=== PATIENT | female | born 2000 | race Hispanic/Latino ===

== ENCOUNTER 2021-04-02 22:53 | Emergency (ER) | payer OTHER, SELFPAY ==
[2021-04-02 23:01] VITALS: BP 138/68; PULSE 87; RESP 18; TEMP 36.9; O2SAT 100
--- NOTE | 2021-04-03 00:03 | ED.ABDPAIN ---
HPI - Abdominal Pain General Chief Complaint: Abdominal Pain Stated Complaint: ABD pain, 7wks preg Time Seen by Provider: 04/02/21 23:11 Source: patient Mode of arrival: ambulatory Limitations: no limitations History of Present Illness HPI narrative: Patient is a who presents today with complaints of abdominal pain with some nausea that started about 1 hour prior to arrival. Pain only occurs on movement. Patient LMP Feb 07, 2021. Denies urinary symptoms, did have an episode of diarrhea this am. Patient denies abnormal or bloody discharge. Patient does endorse constipation. Prior to this am she is unsure when her last BM was. Related Data Allergies Allergy/AdvReac Type Severity Reaction Status Date / Time No Known Allergies Allergy Verified 04/02/21 23:04 Review of Systems Review of Systems: CONSTITUTIONAL: Denies fever, chills, or sweats. EYES: Denies visual changes, redness, or discharge. ENT: Denies rhinorrhea, congestion, sore throat, or otalgia. CARDIOVASCULAR: Denies chest pain, palpitations, or edema. RESPIRATORY: Denies cough or dyspnea. GASTROINTESTINAL: Positive for abdominal pain and nausea. Denies vomiting, or diarrhea. GENITOURINARY: Denies dysuria or hematuria. SKIN: Denies rash or itching. MUSCULOSKELETAL: Denies back pain, joint pain, or myalgia. NEUROLOGIC: Denies headache, numbness, dizziness, or weakness. PSYCHIATRIC: Denies anxiety or depression. PMFSH Past Medical History Medical History Healthy female Social History Social History Smoking status: Never smoker Exam Narrative: GENERAL: Well-appearing, well-nourished, and in no acute distress. HEAD: Normocephalic, atraumatic. EYES: PERRLA and EOMI. ENT: Nares clear, no rhinorrhea or epistaxis. Mucous membranes moist. Oropharynx without tonsillar hypertrophy exudate or other lesions. Bilateral TMs pearly barry nonbulging NECK: Supple. No adenopathy or masses. No carotid bruits or JVD CHEST: Clear to auscultation. No respiratory distress. No wheezes rales or rhonchi HEART: Regular rate and rhythm. No murmur heard. Normal peripheral pulses. ABDOMEN: Soft, nondistended, normal active bowel sounds. Tender at umbilicus. Discharge described below. EXTREMITIES: Normal range of motion. No edema. SKIN: Warm, dry, no rash. NEURO: No focal deficits. Alert and oriented x3. PSYCH: Normal mood and affect. Course Reevaluation(s) Reevaluation #1: Patient currently without pain. Patient still states pain only with movement but is improved. Patient still denies vaginal bleeding. Patient has appointment with OB Monday. Date: 04/03/21 Time: 01:16 Vital Signs Vital signs: Vital Signs Temperature 36.9 C 04/02/21 23:01 Pulse Rate 87 04/02/21 23:01 Respiratory Rate 18 04/02/21 23:01 Blood Pressure 138/68 04/02/21 23:01 Pulse Oximetry 100 04/02/21 23:01 Temperature 36.9 C 04/02/21 23:01 Pulse Rate 87 04/02/21 23:01 Respiratory Rate 18 04/02/21 23:01 Blood Pressure 138/68 04/02/21 23:01 Pulse Oximetry 100 04/02/21 23:01 MDM - Abdominal Pain MDM Narrative Medical decision making narrative: Patient only with pain on movement which has decreased in intensity since arrival. She is unsure of when her last BM was prior to this am. This am she had a small amount of diarrhea. Patient does admit to being constipated. WBC WNL Beta HCG 95,676. Urine without signs of infection. Differential Diagnosis Differential diagnosis: Likely abdominal pain, constipation and other (ectopic ) Lab Data Result diagrams: 04/02/21 23:46 04/02/21 23:46 Labs: Lab Results 04/02/21 04/02/21 04/02/21 Range/Units 23:46 23:46 23:46 WBC 8.1 (4.5-10.0) K/mm3 RBC 4.49 (4.2-5.4) M/mm3 Hgb 11.5 L (12.0-15.0) g/dL Hct 35.4 L (37.0-47.0) % MCV 78.8 L (80-100) fl MC
[2021-04-03 00:08] LABS: Basophils Percent Auto 0.2 % (0.2-1.2); Eosinophils Absolute Auto 0.1 K/mm3 (0-0.3); Eosinophils Percent Auto 0.9 % (0-4.4); Hematocrit 35.4 % (37.0-47.0); Hemoglobin 11.5 g/dL (12.0-15.0); Immature Granulocyte Absolute 0.03 K/mm3 (0.00-0.031); Immature Granulocyte Percent A 0.4 % (0-0.5); Lymphocytes Absolute Auto 2.01 K/mm3 (0.9-3.2); Mean Corpuscular HGB Conc 32.5 g/dl (32-36); Mean Corpuscular Hemoglobin 25.6 pg (26-34); Mean Corpuscular Volume 78.8 fl (80-100); Mean Platelet Volume 9.6 fl (7.4-10.4); Monocytes Absolute Auto 0.7 K/mm3 (0.1-0.6); Monocytes Percent Auto 8.6 % (2.6-8.5); Neutrophils Absolute Auto 5.2 K/mm3 (1.3-6.7); Neutrophils Percent Auto 64.9 % (45.5-73.1); Platelet Count Result 281 k/mm3 (150-375); Red Blood Count 4.49 M/mm3 (4.2-5.4); Red Cell Distribution Width 14.9 % (11.5-14.5); White Blood Count 8.1 K/mm3 (4.5-10.0)
[2021-04-03 00:11] LABS: Add Urine Microscopic? NO; Appearance Urine Clear (Clear); Bilirubin Urine Negative (Negative); Blood Urine Negative (Negative); Color Urine Straw (Yellow); Glucose Urine UA Negative (Negative); Ketones Urine Negative (Negative); Leukocyte Esterase Ur Negative LEU/UL (Negative); Nitrate Urine Negative (Negative); Protein Urine Negative (Negative); Specific Grav Ur 1.006 (1.001-1.035); Urobilinogen Urine Negative mg/dL (<2.0)
[2021-04-03 00:16] LABS: Alanine Aminotransferase 14 U/L (4-35); Albumin Level 4.1 g/dL (3.5-5.1); Alkaline Phosphatase 74 U/L (38-126); Anion Gap 8 mmol/L (8-16); Aspartate Amino Transferase 22 U/L (14-36); Bilirubin,Total < 0.1 mg/dL (0.2-1.3); Blood Urea Nitrogen 9 mg/dL (7-17); Calcium 8.7 mg/dL (8.4-10.2); Carbon Dioxide 25 mmol/L (22-30); Chloride 103 mmol/L (98-107); Estimated Glomerular Filt Rate > 60; Glucose 80 mg/dL (65-110); Potassium 3.4 mmol/L (3.4-5.0); Sodium 136 mmol/L (137-145)
[2021-04-03 01:29] VITALS: BP 132/75; PULSE 82; RESP 16; O2SAT 99
== END 2021-04-03 01:31 | disposition home or self-care (01) ==
PROVIDERS: Emergency Provider Nurse Practitioner Family
DX: O26.891 Other specified pregnancy related conditions, first trimester (principal); R10.33 Periumbilical pain; O99.611 Diseases of the digestive system complicating pregnancy, first trimester; K59.00 Constipation, unspecified; Z3A.01 Less than 8 weeks gestation of pregnancy
CPT/HCPCS: 36415; 80053; 81003; 81025; 84702; 85025; 99283

== ENCOUNTER 2021-08-23 15:14 | Outpatient (CLI) | payer OTHER, SELFPAY ==
[2021-08-23 16:27] LABS: Hematocrit 34.5 % (37.0-47.0); Hemoglobin 10.9 g/dL (12.0-15.0)
[2021-08-23 16:38] LABS: Glucose 1 Hour PP 50gm Dose 109 mg/dL
[2021-08-23 23:00] LABS: HIV 1/2 Ab P24 Ag Result Negative (Negative)
== END 2021-08-23 15:15 | disposition home or self-care (01) ==
PROVIDERS: Visit Provider Obstetrics & Gynecology
DX: Z36.89 Encounter for other specified antenatal screening (principal); Z3A.00 Weeks of gestation of pregnancy not specified
CPT/HCPCS: 36415; 82947; 85014; 85018; 86703; G0432

== ENCOUNTER 2021-11-14 00:34 | Inpatient (IN) | payer OTHER, SELFPAY ==
[2021-11-14] VITALS (294 sets, daily range): BP systolic 82–163; BP diastolic 40–124; PULSE 67–241; RESP 16–22; TEMP 36.3–37.5; O2SAT 89–100; BMI 26.0
--- NOTE | 2021-11-14 01:17 | LDADM ---
This patient, Judy Sahni, was admitted to Labor/Delivery/Recovery 105 on 11/14/21 at 00:34. Plans for labor, pain management and were discussed with patient. Patient/family oriented to hospital policies and general routines including ID bracelet, bed and alarms, visiting hours, pain management, procedures, bathroom and other care routines, personal items, smoking policy, room service/diet and guest tray routines, security routines, and visiting hours. Patient/Family are encouraged to report perceived risks to care and to ask questions if they do not understand what they are told or what they should do. See OBIX for further documentation.
[2021-11-14 01:25] LABS: Basophils Percent Auto 0.4 % (0.2-1.2); Eosinophils Absolute Auto 0.1 K/mm3 (0-0.3); Eosinophils Percent Auto 0.6 % (0-4.4); Hematocrit 33.8 % (37.0-47.0); Immature Granulocyte Absolute 0.07 K/mm3 (0.00-0.031); Immature Granulocyte Percent A 0.7 % (0-0.5); Lymphocytes Absolute Auto 1.94 K/mm3 (0.9-3.2); Lymphocytes Percent Auto 19.1 % (18.3-44.2); Mean Corpuscular HGB Conc 32.5 g/dl (32-36); Mean Corpuscular Hemoglobin 25.2 pg (26-34); Mean Corpuscular Volume 77.5 fl (80-100); Mean Platelet Volume 9.8 fl (7.4-10.4); Monocytes Absolute Auto 0.9 K/mm3 (0.1-0.6); Monocytes Percent Auto 8.8 % (2.6-8.5); Neutrophils Absolute Auto 7.1 K/mm3 (1.3-6.7); Neutrophils Percent Auto 70.4 % (45.5-73.1); Platelet Count Result 254 k/mm3 (150-375); Red Blood Count 4.36 M/mm3 (4.2-5.4); White Blood Count 10.1 K/mm3 (4.5-10.0)
[2021-11-14] MEDS: fentaNYL CITRATE INJ (*CRX) 100 MCG/2 ML VIAL 50 MCG IV PUSH (03:45)
[2021-11-14] MEDS: LACTATED RINGERS 1,000 ML 125 ML IV CONT ×3 (04:21→16:22)
--- NOTE | 2021-11-14 04:52 | WPDANESEPP ---
Anes - Eval Pre Procedure Procedure: labor epidural Date/Time: 11/14/21 04:52 Surgeon: Nya Preop Diagnosis: ABd pain with contractions Pre Op Diagnosis: leaking fluid Patient Data Age: 21 Gender: F Height: 1.5 m Weight: 58.5 kg Last Vital Signs Temp 97.4 F L 11/14/21 03:30 Pulse 207 H 11/14/21 04:46 BP 98/68 L 11/14/21 04:46 Pulse Ox 100 11/14/21 04:51 O2 Del Method Room Air 11/14/21 01:16 Allergies Allergy/AdvReac Type Severity Reaction Status Date / Time No Known Allergies Allergy Verified 10/18/21 12:32 Home Medications Medication Instructions Recorded Confirmed Type vitamins no.119-iron 1 tablet PO DAILY 11/14/21 11/14/21 History fumarate 29 mg-folic acid 1 mg tablet (Se--19) Laboratory Tests 11/14/21 11/14/21 11/14/21 01:13 01:13 01:13 WBC 10.1 K/mm3 H K/mm3 (4.5-10.0) RBC 4.36 M/mm3 M/mm3 (4.2-5.4) Hgb 11.0 g/dL L g/dL (12.0-15.0) Hct 33.8 % L % (37.0-47.0) MCV 77.5 fl L fl (80-100) MCH 25.2 pg L pg (26-34) MCHC 32.5 g/dl g/dl (32-36) RDW 15.0 % H % (11.5-14.5) Plt Count 254 k/mm3 k/mm3 (150-375) MPV 9.8 fl fl (7.4-10.4) Immature Gran % (Auto) 0.7 % H % (0-0.5) Neut % (Auto) 70.4 % % (45.5-73.1) Lymph % (Auto) 19.1 % % (18.3-44.2) [place] % (Auto) 8.8 % H % (2.6-8.5) Eos % (Auto) 0.6 % % (0-4.4) Baso % (Auto) 0.4 % % (0.2-1.2) Lymph # (Auto) 1.94 K/mm3 K/mm3 (0.9-3.2) [place] # (Auto) 0.9 K/mm3 H K/mm3 (0.1-0.6) Eos # (Auto) 0.1 K/mm3 K/mm3 (0-0.3) Baso # (Auto) 0.0 K/mm3 K/mm3 (0.0-0.1) Abs Immat Gran (auto) 0.07 K/mm3 H K/mm3 (0.00-0.031) Absolute Neuts (auto) 7.1 K/mm3 H K/mm3 (1.3-6.7) Absolute Nucleated RBC 0.0 K/mm3 K/mm3 (0.0-0.012) Nucleated RBC % 0.0 % % (0.0-0.2) RPR Pending Blood Type B Positive Antibody Screen Negative Patient hx anesthesia problems: none Family hx anesthesia problems: none Results Review: All pre-operative results and documents have been reviewed as part of the pre-operative evaluation. [facility] Past Medical History Medical History Chlamydia Healthy female and not yet delivered Family History Family History Other Unknown family medical history Social History Social History Smoking status: Never smoker Second hand tobacco smoke exposure: No Substance use: never Spiritual care concerns: No Exam Day of Procedure 11/14/21 04:52 Patient weight: normal
--- NOTE | 2021-11-14 11:01 | WPDHPUPDATE1 ---
History and Physical Update Update Date/Time: 11/14/21 11:01 this patient is a 21-year-old 1 at term who presented with ruptured membranes. She has proceeded through labor. She has been augmented. She is 8 cm. She has an epidural. There was reassuring status. Continue expectant management. History and Physical has been reviewed, including an updated exam of the patient. There are NO changes in the patient's condition. Risks, benefits, and alternatives have been discussed and questions answered. Patient agrees to proceed with procedure.
[2021-11-14] MEDS: OXYTOCIN 30 UNITS/NS 500 ML 30 UNITS/500 ML BAG 999 UNITS IV CONT (14:02)
[2021-11-14] MEDS: ONDANSETRON INJ 4 MG/2 ML VIAL IV PUSH (15:39)
[2021-11-14] MEDS: AMPICILLIN 2 GM/NS 100 ML 2 GM/100 ML BAG IVPB (18:24)
--- NOTE | 2021-11-14 22:28 | WPDHPUPDATE1 ---
History and Physical Update Update Date/Time: 11/14/21 22:28 History and Physical has been reviewed, including an updated exam of the patient. There are NO changes in the patient's condition. Risks, benefits, and alternatives have been discussed and questions answered. Patient agrees to proceed with procedure.
--- NOTE | 2021-11-14 22:28 | PM.IMHP ---
H&P: [facility] History of Present Illness Date/Time: 11/14/21 22:28 Chief Complaint: Labor Narrative: this patient is a 21-year-old female who is a 1. She has been laboring throughout the day. She has been complete and pushing for some time. There has been failure to descend. There is nonreassuring heart tones. We have agreed to move forward with delivery. She has late decelerations with each push. There were deep and lengthy. Patient understands risks associated with delivery they include injuries. Injuries could result in hospitalization, more surgery, severe illness. She understands that. She understands there is risk of infection and hemorrhage. Review of Systems Review of Systems: All systems reviewed & are unremarkable except as noted in HPI and below Constitutional: Constitutional: Denies chills, Denies fatigue, Denies fever(s) and Denies weakness Eyes: Eyes: Denies blurry vision, Denies change in vision, Denies loss of peripheral vision, Denies loss of vision, Denies other visual disturbances and Denies eye pain ENT: Denies vertigo, Denies dizziness, Denies hearing loss, Denies mouth pain, Denies nasal obstruction, Denies neck mass and Denies neck pain Cardiovascular: Cardiovascular: Denies chest pain, Denies diaphoresis, Denies syncope, Denies leg edema and Denies dyspnea Respiratory: Respiratory: Denies chest congestion, Denies cough, Denies hemoptysis, Denies dyspnea and Denies wheezing Gastrointestinal: Gastrointestinal: Denies abdominal pain, Denies constipation, Denies diarrhea, Denies nausea and Denies vomiting Genitourinary: Genitourinary: Denies hematuria, Denies change in libido, Denies nocturia, Denies genital lesions, Denies flank pain and Denies urinary urgency Musculoskeletal: Musculoskeletal: Denies abnormal gait, Denies back pain, Denies myalgias, Denies arthralgias, Denies joint swelling, Denies muscle weakness and Denies neck pain Integumentary/Breasts: Skin/Breast: Denies swelling, Denies breast pain, Denies breast mass, Denies dry skin, Denies nipple discharge, Denies unusual bruising and Denies jaundice Neurologic: Denies Neuro-related abnormal movements, Denies Abnormal speech present, Denies abnormal gait, Denies behavioral changes, Denies confusion, Denies vertigo, Denies dizziness, Denies syncope, Denies loss of vision, Denies memory loss, Denies convulsions and Denies weakness Psychiatric: Psychiatric: Denies abnormal sleep pattern, Denies behavioral changes, Denies change in libido, Denies confusion, Denies depression, Denies anhedonia and Denies memory loss Endocrine: Endocrine: Reports no additional endocrine complaints, Denies change in libido and Denies fatigue Hematologic/Lymphatic: Hematologic/Lymphatic: Reports no additional hematologic/lymphatic complaints Allergic/Immunologic: Allergic/Immunologic: Reports no additional allergic/immunologic complaints and Denies wheezing PMFSH Past Medical History Medical History Chlamydia Healthy female and not yet delivered Family History Family History Other Unknown family medical history Social History Social History Smoking status: Never smoker Second hand tobacco smoke exposure: No Substance use: never Spiritual care concerns: No Meds Home Medications and Allergies Home Medications Medication Instructions Recorded Confirmed Type vitamins no.119-iron 1 tablet PO DAILY 11/14/21 11/14/21 History fumarate 29 mg-folic acid 1 mg tablet (Se-Les-19) Allergies Allergy/AdvReac Type Severity Reaction Status Date / Time No Known Allergies Allergy Verified 10/18/21 12:32 Vital Signs Vital Signs - 24 hr 11/14/21 01:29 11/14/21 01:31 11/14/21 01:46 Temperature Pulse Rate 80 82 82 Blood Pres
[2021-11-14] MEDS: KETOROLAC 30 MG/ML VIAL (*BKC) 15 MG IV PUSH (22:55)
--- NOTE | 2021-11-14 23:11 | P.OP_ITS ---
Procedure Note - Detailed Date of Procedure 11/14/21 Pre-op Diagnosis Nonreassuring heart tones, failure to descen Post-op Diagnosis Same Procedure Performed Low-transverse section Surgeon Lulú Mercado MD Anesthesia Spinal Indications Failure to descend, nonreassuring heart tones Findings Normal gestational maternal anatomy, average size , normal Apgars. Description of Procedure The patient was taken the operating room. She was prepped and draped in dorsal supine position with a leftward tilt. This was done after spinal anesthetic was applied. A low-transverse skin incision was made and carried down till of the fascia with the knife. The fascial incision was made with the knife. The fascial incision was extended laterally with Neville scissors. The fascia was tented upward superiorly and inferiorly the rectus muscles were dissected off bluntly. The rectus muscles were the midline. The preperitoneal fat and peritoneum were dissected open bluntly at the superior aspect of the rectus muscles. The peritoneal incision was extended superior and inferior with good position of bladder. The uterine incision was made with a scalpel down to the level of the amniotic cavity. The amniotic cavity was entered bluntly. The infant was delivered. The cord was clamped and cut and the infant was handed off to waiting pediatric staff. Cord bloods were obt ained. The placenta was removed manually. The uterus was exteriorized. The uterus was cleared of all clots, debris and membranes. The uterus was closed in 0 Vicryl running lock fashion. An imbricating over a was placed along the incision line as well. The uterus was returned to the abdomen. The gutters were cleared of all clots and debris. The fascia was closed with 0 Vicryl running fashion. The subcutaneous tissue was irrigated pinpoint bleeders were cauterized. The skin was closed with subcuticular absorbable fannie. The skin incision line was covered with glue. The patient tolerated the procedure well. She has taken recovery room in stable condition. Sponge lap and needle counts were correct x2. Complications No immediate complications Condition Stable Disposition PACU
[2021-11-15] VITALS (41 sets, daily range): BP systolic 103–139; BP diastolic 45–101; PULSE 73–133; RESP 16–22; TEMP 36.3–36.9; O2SAT 92–100
[2021-11-15] MEDS: OXYTOCIN 30 UNITS/NS 500 ML 30 UNITS/500 ML BAG 999 UNITS IV CONT (00:27)
[2021-11-15] MEDS: LACTATED RINGERS 1,000 ML 125 ML IV CONT (00:27)
[2021-11-15] MEDS: fentaNYL CITRATE INJ (*CRX) 100 MCG/2 ML VIAL 25 MCG IV PUSH ×2 (00:53→01:20)
--- NOTE | 2021-11-15 03:05 | OBPPTRN ---
11/15/2021 at 0150 Patient transferred to post room #290 via stretcher and keiko rollins. Support person present X 2. Visitors and patient state they are fluent in Frisian, however the three spoke in Latvian the entire time I was in the room. I asked for the television's sound to please be lowered so I could effectively discuss the admission packet, security measures and plan of care. Patient and family oriented to unit, room, information board, rooming in, admission packet and security measures. I discussed that there can be one person spend the night. Judy explained there is no way for the additional visitor to go home at this time. I told the family the additional person may stay, however from this point on, only one may spend the night. The patient states understanding.
--- NOTE | 2021-11-15 07:21 | PM.OBPNVD ---
OB - PN: Subj Subjective Date/time seen: 11/15/21 07:21 Patient comments: no complaints and incisional pain [place] feeding status: breast and bottle feeding Narrative: POD 1 from primary CS. Doing well. Normal lochia. Eating, stewart in. OB - PN: Obj Data Labs CBC & Chem 7: 11/14/21 01:13 Labs: am H/H still pending OB - PN A/P Plan day: 1 Plan: routine care Comments: am H/H pending doing well so far. encouraged to put baby to breast every feed before giving bottle. Time Spent With Patient Time: Total time spent is greater than 50% in coordination of care (as documented) at patient's floor/unit and/or counseling patient: Exam Narrative: NAD abdomen soft, appropriately tender, incision bandaged Extremities nontender with 1+ edema
[2021-11-15 07:24] LABS: Basophils Percent Auto 0.2 % (0.2-1.2); Eosinophils Percent Auto 0.1 % (0-4.4); Hematocrit 28.3 % (37.0-47.0); Hemoglobin 9.1 g/dL (12.0-15.0); Immature Granulocyte Absolute 0.16 K/mm3 (0.00-0.031); Immature Granulocyte Percent A 0.9 % (0-0.5); Lymphocytes Absolute Auto 1.27 K/mm3 (0.9-3.2); Lymphocytes Percent Auto 7.2 % (18.3-44.2); Mean Corpuscular HGB Conc 32.2 g/dl (32-36); Mean Corpuscular Hemoglobin 25.1 pg (26-34); Mean Platelet Volume 9.5 fl (7.4-10.4); Monocytes Absolute Auto 1.2 K/mm3 (0.1-0.6); Monocytes Percent Auto 6.8 % (2.6-8.5); Neutrophils Absolute Auto 15.1 K/mm3 (1.3-6.7); Neutrophils Percent Auto 84.8 % (45.5-73.1); Platelet Count Result 210 k/mm3 (150-375); Red Blood Count 3.63 M/mm3 (4.2-5.4); White Blood Count 17.8 K/mm3 (4.5-10.0)
[2021-11-15 09:12] LABS: Rapid Plasma Reagin Non-Reactive (NonReactive)
--- NOTE | 2021-11-15 09:54 | WPDANLDPN2 ---
Anes-Prog Note L&D Date/Time: 11/15/21 09:54 Comfortable throughout: section Neuraxial method: epidural Epidural/Spinal procedure site: clean & non-tender Neuro status: Neuro function grossly intact. Cardiovascular status: normal Respiratory status: normal Airway patency: baseline Mental status: baseline Post-Op hydration status: normal Vital Signs: Last Vital Signs Temp 36.3 C L 11/15/21 07:24 Pulse 83 11/15/21 07:24 Resp 16 11/15/21 07:24 BP 107/61 11/15/21 07:24 Pulse Ox 97 11/15/21 07:24 O2 Del Method Room Air 11/15/21 07:15 Pain score (VAS): 02/15 I/O: Intake & Output 11/14/21 11/15/21 11/15/21 23:59 07:59 15:59 Intake Total 1200 Output Total 436 Balance 764 Post-procedural complaints: none Patient feedback: Patient satisfied with anesthetic care.
--- NOTE | 2021-11-15 09:55 | WPDANLDNPN2 ---
Anes-Prog Note L&D-Neuraxial Date/Time: 11/15/21 09:55 Neuraxial medications: epidural PF morphine Opiod-related complaints: none Patient feedback: Patient satisfied with post-operative pain management.
[2021-11-15] MEDS: KETOROLAC 30 MG/ML VIAL (*BKC) IV PUSH (10:52)
[2021-11-15] MEDS: POLYSACCHARIDE IRON COMPLEX 150 MG CAPSULE PO (16:25)
[2021-11-15] MEDS: IBUPROFEN 600 MG TABLET PO ×2 (16:26→22:58)
[2021-11-15] MEDS: DOCUSATE SODIUM 100 MG CAPSULE PO (16:27)
[2021-11-15] MEDS: HYDROcodone/acetaminophen (*CRX) 10-325 MG TABLET 1 TAB PO (22:59)
[2021-11-16] MEDS: IBUPROFEN 600 MG TABLET PO ×3 (05:35→19:05)
[2021-11-16 07:40] VITALS: BP 105/64; PULSE 73; RESP 18; TEMP 36.2; O2SAT 100
--- NOTE | 2021-11-16 07:42 | P.PNOB_ITS ---
OB - PN: Subj Subjective Date/time seen: 11/16/21 07:42 Patient comments: pain well controlled and tolerating diet [place] baby status: doing well and nursing well [place] feeding status: exclusively breast feeding OB - PN: Obj Data Labs CBC & Chem 7: 11/15/21 07:14 Labs: Laboratory Results - last 24 hr 11/14/21 01:13 RPR Non-reactive OB - PN A/P Plan day: 2 Plan: routine care Comments: home tomorrow Time Spent With Patient Time: Total time spent is greater than 50% in coordination of care (as documented) at patient's floor/unit and/or counseling patient: Exam Narrative: NAD abdomen soft, appropriately tender, incision CDI Extremities nontender with 1+ edema
[2021-11-16] MEDS: POLYSACCHARIDE IRON COMPLEX 150 MG CAPSULE PO ×2 (08:11→15:45)
[2021-11-16] MEDS: DOCUSATE SODIUM 100 MG CAPSULE PO ×2 (08:11→15:44)
[2021-11-16] MEDS: MULTIVIT/MIN/PREN/FOL AC/IRON TABLET 1 TAB PO (08:12)
[2021-11-16] MEDS: HYDROcodone/acetaminophen (*CRX) 5-325 MG TABLET 1 TAB PO ×2 (11:42→19:04)
--- NOTE | 2021-11-16 12:04 | PC.NURSE ---
[id number] Introductions were made, then consulted with patient to assess needs related to . Mother led the conversation with her?plans to feed?her infant and the?experience so far. Resources provided for inpatient and outpatient services using a resource guide and mom/baby guide. Mother voiced understanding of information and requests assistance. Mother works well with her infant with encouragement. Reviewed working with , breast, nipples and how to protect the nipples with an optimal deep latch, good positioning, and good hand washing. Encouraged understanding the benefits of skin to skin, responding to feeding cues, frequencies of feeding 8-12 times in 24 hours (approximately 2-3 hours), duration of feedings, milk production, intake/output feeding sheet and signs of adequate intake encouraging swallowing at the breast. Reviewed positioning and alignment, supporting breast, off-centered (asymmetrical latch) and leading with the chin with big open wide gape. Infant latched optimally to the left breast in a laid-back cross cradle position. Education given to mother of how to visualize suck/swallow ratios and drinking at the breast. Infant was able to maintain latch without discomfort to mother. Nipple care reviewed with optimal latch and good positioning. Resources used to facilitate learning were used from the tool and mom and baby guide. Mother voiced understanding of the education shared, calling for assistance if the infant does not wake to latch, if there is discomfort with , and to have assistance latching to the right breast. [id number] Consulted with patient to assess needs related to . Reviewed positioning and alignment, supporting breast, off-centered (asymmetrical latch) and leading with the chin with big open wide gape. latched optimally to the right breast in a laid-back cross cradle position. Education given to mother of how to visualize suck/swallow ratios and drinking at the breast. was able to maintain latch without discomfort to mother. Nipple care reviewed with optimal latch and good positioning. Resources used to facilitate learning were used from the tool and mom and baby guide. Mother voiced understanding of the education shared, calling for assistance if the infant does not wake to latch, if there is discomfort with , or latch assessment. Reported to the primary RN.
--- NOTE | 2021-11-16 14:45 | PC.NURSE ---
1405 - Consulted with patient to assess needs related to . Mother works well with her infant with encouragement. Reviewed working with infant, breast, nipples and how to protect the nipples with an optimal deep latch, good positioning, and good hand washing. Encouraged understanding the benefits of skin to skin, responding to feeding cues, stimulating with skin to skin if it has been 2-2.5 hours since the start of the last , intake/output feeding sheet, signs of adequate intake using the pie demonstration, and encouraging swallowing at the breast. Reviewed positioning and alignment, supporting breast, off-centered (asymmetrical latch) and leading with the chin with big open wide gape. latched optimally to the right breast in football position. Education given to mother of how to visualize suck/swallow ratios and listen for drinking at the breast. was able to maintain latch without discomfort to mother. Nipple care reviewed with optimal latch and good positioning, and to have clean hands when touching the nipple/breast. Resources used to facilitate learning were used from the tool and mom and baby guide. Mother voiced understanding of the education shared, calling for assistance if the infant does not wake to latch or if there is discomfort with . Reported to the primary RN.
[2021-11-16 19:08] VITALS: BP 124/67; PULSE 80; RESP 18; TEMP 36.4
[2021-11-17] MEDS: IBUPROFEN 600 MG TABLET PO ×2 (05:27→13:35)
[2021-11-17] MEDS: HYDROcodone/acetaminophen (*CRX) 5-325 MG TABLET 1 TAB PO ×3 (05:27→13:35)
[2021-11-17 07:20] VITALS: BP 103/61; PULSE 70; RESP 16; TEMP 36.2; O2SAT 100
--- NOTE | 2021-11-17 07:20 | PC.NURSE ---
PT introductions made and plan of care discussed per post , pain management, breast feeding and bottle feeding, daily care activities and pending discharge to home. PT sole recipient of such instructions and received instructions per one to one discussion, mom baby care guide, and demonstrations this shift. PT shows no barriers to learning and verbalized understanding of such care.
--- NOTE | 2021-11-17 07:20 | PM.OBPNVD ---
OB - PN: Subj Subjective Date/time seen: 11/17/21 07:20 s/p delivery OB - PN: Obj Data Labs CBC & Chem 7: 11/15/21 07:14 OB - PN A/P Plan day: 3 Plan: routine care and discharge home Time Spent With Patient Time: Total time spent is greater than 50% in coordination of care (as documented) at patient's floor/unit and/or counseling patient: Review of Systems Review of Systems: All systems reviewed & are unremarkable except as noted in HPI and below Exam Narrative: Incision cdi Const: General: cooperative, healthy appearing and comfortable
[2021-11-17] MEDS: SIMETHICONE 80 MG TAB.CHEW PO ×2 (10:07→13:34)
[2021-11-17 10:09] VITALS: PULSE 70; RESP 16; O2SAT 100
[2021-11-17] MEDS: DOCUSATE SODIUM 100 MG CAPSULE PO (10:09)
[2021-11-17] MEDS: POLYSACCHARIDE IRON COMPLEX 150 MG CAPSULE PO (10:09)
--- NOTE | 2021-11-17 13:15 | PC.NURSE ---
PT received discharge instructions per protocol and verbalized understanding of such care.
--- NOTE | 2021-11-17 14:15 | PC.NURSE ---
[id number] Consulted with patient to assess needs related to . Mother led conversation with her experience with feeding baby so far and mothers inverted grade 1 nipples have small bruising on the tips. Infant has been bottle fed on/off during this stay. Mother states she will start pumping at home when her receives a bottle. Reviewed milk production, stimulating the milk supply with or pumping when receives a bottle and the risks to the milk supply when formula feeding. Reviewed working with infant, breast, nipples and how to protect the nipples with an optimal deep latch, good positioning, and good hand washing. Encouraged understanding the benefits of skin to skin, responding to feeding cues, frequencies of feeding 8-12 times in 24 hours (approximately 2-3 hours), duration of feedings, milk production, intake/output feeding sheet and signs of adequate intake encouraging swallowing at the breast. Reviewed positioning and alignment, supporting breast, off-centered (asymmetrical latch) and leading with the chin with big open wide gape. latched optimally to the left breast in football position. Education given to mother of how to visualize suck/swallow ratios and drinking at the breast. Infant was able to maintain latch without discomfort to mother. Nipple care reviewed with optimal latch and good positioning, and to have clean hands when touching the nipple/breast. Resources used to facilitate learning were used from the visual handout, tool, mom and baby guide. Mother voiced understanding of the education shared, calling for assistance if the infant does not latch or if there is discomfort with . [phone] RN was called to the room for assistance offering the other breast to the . Infant is sleepy, content with relaxed hands. Mother voiced she will call when shows feeding cues or if the infant doesn't wake to breastfeed. [phone] Mother demonstrates her ability to independently latch optimally without discomfort to the right breast using the football positioning. Mother is feeding appropriately for growth of infant and understands stimulating infant to eat if needed. has had appropriate feedings in the last 24 hours meets the outcomes for weight, output and jaundice at this time. Mother states she is confident to continue effectively her infant at home or when to call for assistance and denies any additional assistance or education at this time. Reinforced understanding of milk production, transition of milk, signs of adequate intake, prevention/relief of engorgement, responsive after visualizing feeding cues, the different methods of stimulating to breastfeed 2-3 hours after the start of the last feeding, community resources, medication information reviewed per [employer] and when to call a provider using the resource of the mom and baby guide/[facility] website. Mother voiced understanding of the education shared. Reported to the primary RN.
--- NOTE | 2021-11-17 14:32 | PC.NURSE ---
Addendum entered by Faustino Perez RN 11/17/21 14:33: actual time of discharge 1356 Original Note: PT discharged to home ambulatory accompanied by significant other and infant and taken to waiting car. follow up appts confirmed
[2021-11-18 10:25] VITALS: BP 124/80; PULSE 87; RESP 20; TEMP 36.7; O2SAT 99
--- NOTE | 2021-11-18 15:53 | PM.OBDSVD ---
DS: Admitting Diagnosis Discharge Date 11/17/21 Admitting Diagnosis srom OB - DS: Summary OB Procedures : None OB Procedures Intrapartum: OB Procedures: : None Peripartum Data Procedures: Procedures Operation Date: 11/14/21 22:30 Actual Procedure Side Surgeon p Section Not Applicable Lulú Mercado MD Time Spent with Patient Time attestation: Total time spent providing and/or coordinating discharge services: DS: Data Data Completed and Pending Completed studies during hospitalization: Pending at discharge 11/14/21 22:52 Surgical [PTH] Routine Discharge Plan Discharge Attending physician on discharge: Janelle Fay Consulting providers: Brittnee Elmore ; Faustino Cox ; Ilda Cherry Discharging Clinician: Brittnee Elmore Patient Disposition: Home, Self-Care Activity: pelvic rest Diet: regular Discharge Instructions: Education: Mom and Baby Guide Given to: Mother Follow-Up: Call your delivering provider's office for an appointment to be seen in: 1 Week Mom and baby should come to the [facility] for the follow-up appointment. Appointment Date/Time: November 18, 2021 at 10:00 am What to expect at your follow-up visit: Blood Pressure Check Call [phone] if you are unable to keep your appointment time. BREAST CARE: * Wear a snug supportive bra. * For engorgement discomfort: Breast Feeding: * Apply warm moist washcloths * Express milk as needed to relieve engorgement * Wear loose clothing Bottle Feeding: * May apply ice packs * For sore nipples: * Identify correct latch-on * Apply warm moist washcloths before and after nursing * Air dry nipples after nursing * May apply Lansinoh cream to nipples ABDOMINAL INCISION: (if applicable) * Allow incision to air dry * Do NOT use lotions for powders on your incision * When showering, allow soap and water to run over the incision, but do not wash incision PERINEAL CARE: * Until bleeding stops, use your michelle bottle after urinating * Change your pad frequently throughout the day * No tub baths until seen by your physician - You may shower ACTIVITY: * Rest as much as possible. * Do not exercise or lift anything heavier than your baby (such as laundry or other children.) * Avoid stairs or driving as much as possible. * Do not put anything into the vagina. No douching, tampons, or sexual activity until seen by physician. NOTIFY PHYSICIAN IF YOU HAVE ANY QUESTIONS OR IF ANY OF THE FOLLOWING SYMPTOMS OCCUR: * If your incision becomes red, swollen, or more painful than what you have experienced in the hospital. * If your vaginal bleeding becomes foul smelling. * If your vaginal bleeding becomes more heavy than a period or if your bleeding changes from pink to bright red. However, you may pass an occasional walnut-sized clot once or twice for the first week . * If you experience a sharp, shooting pain in you calves. * If you discover a hard, reddened area on your breast or if you experience flu-like symptoms. * If you have a fever of 100.4 or greater DIET: * Eat regular, well-balanced meals. * Drink plenty of fluids daily. If , drink to thirst. Patient Instructions: Antibiotic Form Stand Alone Forms: General Discharge Information Follow-up/Referrals: Janelle Fay MD [Physician] - 1 Week Discharge Medications: New hydrocodone-acetaminophen 5-325 mg Tablet 1 tablet PO Q3H PRN (Reason: Moderate Pain (4-6)) Qty: 20 0RF ibuprofen 600 mg Tablet 600 mg PO Q6H PRN (Reason: Cramping) Qty: 60 0RF Continued Se-Les-19 29 mg iron- 1 mg tablet 1 tablet PO DAILY Date of admission: 11/14/21 00:34 Primary Care Provider: UNKNOWN,DOCTOR Admitting Provider: Lulú Mercado Attending physician on admission: Janelle Fay
== END 2021-11-17 13:56 | disposition home or self-care (01) | DRG 540 ==
LOC: ANHLDR 01:00 → ANHOB2 11-15 02:55
PROVIDERS: Admitting Provider Obstetrics & Gynecology; Visit Provider Obstetrics & Gynecology
PROC: 10D00Z1 Extraction of Products of Conception, Low, Open Approach (ICD-10-PCS; CPT 59514; principal; 2021-11-14 22:30)
DX: O42.02 Full-term premature rupture of membranes, onset of labor within 24 hours of rupture (principal); O36.8330 Maternal care for abnormalities of the fetal heart rate or rhythm, third trimester, not applicable or unspecified; O62.2 Other uterine inertia; Z37.0 Single live birth; Z3A.39 39 weeks gestation of pregnancy; O69.81X0 Labor and delivery complicated by cord around neck, without compression, not applicable or unspecified
CPT/HCPCS: 36415; 84112; 85025; 86592; 86850; 86900; 86901; 88307; A9270; J0290; J0456; J1885; J2274; J2405; J2590; J2795; J3010; J7120

== ENCOUNTER 2022-11-30 11:41 | Emergency (ER) | payer OTHER, SELFPAY ==
[2022-11-30 11:42] VITALS: BP 132/79; PULSE 80; RESP 20; TEMP 36.2; O2SAT 100
[2022-11-30 12:12] LABS: Appearance Urine Cloudy (Clear); Bacteria Urine Rare /hpf; Bilirubin Urine Negative (Negative); Blood Urine 3+ (Negative); Color Urine Yellow (Yellow); Glucose Urine UA Negative (Negative); Ketones Urine Negative (Negative); Leukocyte Esterase Ur 3+ LEU/UL (Negative); Nitrate Urine Negative (Negative); Non Pathogenic Casts 0-2; Protein Urine 2+ mg/dL (Negative); Specific Grav Ur 1.011 (1.001-1.035); Squamous Epithelial Cell Urine Occasional /hpf (Few); Urobilinogen Urine 0.2 mg/dL (<2.0); WBC Urine >100 /hpf; pH Urine 6.5 (5.0-9.0)
[2022-11-30 12:40] LABS: Add Urine Microscopic? YES
--- NOTE | 2022-11-30 13:03 | ED.BACK ---
HPI - Back Pain/Injury General Chief Complaint: Back Pain/Injury Stated Complaint: low back pain Time Seen by Provider: 11/30/22 11:48 History of Present Illness HPI Narrative: 22-year-old female present to the emergency room for evaluation of low back pain, dysuria, urinary urgency and frequency for several days. Denies fever. Patient is also nauseated. Related Data Home Medications Medication Instructions Recorded Confirmed vitamins no.119-iron 1 tablet PO DAILY 11/14/21 11/14/21 fumarate 29 mg-folic acid 1 mg tablet (Se--19) Allergies Allergy/AdvReac Type Severity Reaction Status Date / Time No Known Allergies Allergy Verified 11/30/22 12:16 Review of Systems Review of Systems: CONSTITUTIONAL: Denies fever, chills, or sweats. EYES: Denies visual changes, redness, or discharge. ENT: Denies rhinorrhea, congestion, sore throat, or otalgia. CARDIOVASCULAR: Denies chest pain, palpitations, or edema. RESPIRATORY: Denies cough or dyspnea. GASTROINTESTINAL: Denies abdominal pain, nausea, vomiting, or diarrhea. GENITOURINARY: Reports dysuria SKIN: Denies rash or itching. MUSCULOSKELETAL: Reports low back pain NEUROLOGIC: Denies headache, numbness, dizziness, or weakness. PSYCHIATRIC: Denies anxiety or depression. [facility] Past Medical History Medical History Chlamydia Healthy female and not yet delivered Family History Family History Other Unknown family medical history Social History Social History Smoking status: Never smoker Second hand tobacco smoke exposure: No Substance use: never Spiritual care concerns: No Exam Narrative: GENERAL: Well-appearing, well-nourished, no physical limitations, and in no acute distress. HEAD: Normocephalic, atraumatic. EYES: Conjunctivae normal, PERRLA and EOMI. ENT: External nose normal, Nares clear, no rhinorrhea or epistaxis. Mucous membranes moist. Oropharynx without tonsillar hypertrophy exudate or other lesions. External ears normal, bilateral TMs normal bilaterally NECK: Supple. No meningeal signs. No adenopathy or masses. No carotid bruits or JVD CHEST: Clear to auscultation. No respiratory distress. No wheezes rales or rhonchi. No tenderness. HEART: Regular rate and rhythm. No murmur heard. Normal peripheral pulses. ABDOMEN: Soft, nontender, nondistended, normal active bowel sounds. BACK: No CVA tenderness EXTREMITIES: Normal range of motion. No edema. No clubbing or cyanosis SKIN: Warm, dry, no rash. No noted wounds NEURO: No focal deficits. Alert and oriented x3. MAEW. CN's II-XI intact bilaterally, normal gait PSYCH: Cooperative. Normal mood and affect. Course Vital Signs Vital signs: Vital Signs Temperature 36.2 C L 11/30/22 11:42 Pulse Rate 80 11/30/22 11:42 Respiratory Rate 20 11/30/22 11:42 Blood Pressure 132/79 11/30/22 11:42 Pulse Oximetry 100 11/30/22 11:42 Oxygen Delivery Room Air 11/30/22 11:42 Temperature 36.2 C L 11/30/22 11:42 Pulse Rate 80 11/30/22 11:42 Respiratory Rate 20 11/30/22 11:42 Blood Pressure 132/79 11/30/22 11:42 Pulse Oximetry 100 11/30/22 11:42 Oxygen Delivery Room Air 11/30/22 11:42 MDM - Back Pain/Injury Lab Data Labs: Lab Results 11/30/22 Range/Units 11:57 Urine Color Yellow (Yellow) Urine Appearance Cloudy H (Clear) Urine pH 6.5 (5.0-9.0) Ur Specific Russell 1.011 (1.001-1.035) Urine Protein 2+ H (Negative) mg/dL Urine Glucose (UA) Negative (Negative) mg/dL Urine Ketones Negative (Negative) mg/dL Ur Blood (Man) 3+ H (Negative) Urine Nitrate Negative (Negative) Urine Bilirubin Negative (Negative) Urine Urobilinogen 0.2 (<2.0) mg/dL Leukocyte Esterase Rfl 3+ H (Negative) JOAO/UL Urine RBC 11-20 H (0-2)
[2022-11-30] MEDS: LIDOCAINE HCL 1% LOCAL INJ 10 ML VIAL (13:23)
[2022-11-30] MEDS: cefTRIAXone 1 GM VIAL IM (13:23)
[2022-11-30 13:34] VITALS: BP 112/63; PULSE 66; RESP 15; O2SAT 97
== END 2022-11-30 13:37 | disposition home or self-care (01) ==
PROVIDERS: Emergency Provider Nurse Practitioner Family; PCP Nurse Practitioner Family
DX: N39.0 Urinary tract infection, site not specified (principal)
CPT/HCPCS: 81001; 81025; 87086; 87088; 96372; 99283; J0696